=== PATIENT | female | born 1995 | race Caucasian/White ===

== ENCOUNTER 2018-06-18 20:58 | Emergency (ER) | payer OTHER ==
[2018-06-18] MEDS ORDERED: Metoclopramide HCl 10 MG/2 ML VIAL ONE (21:14)
[2018-06-18] MEDS ORDERED: methylPREDNISolone Sod Succ/PF 125 MG/2 ML VIAL ONE (21:14)
[2018-06-18] MEDS ORDERED: Ketorolac Tromethamine 30 MG/ML VIAL ONE (21:14)
[2018-06-18] MEDS ORDERED: diphenhydrAMINE 50 MG/ML VIAL ONE (21:14)
== END 2018-06-18 22:32 | disposition home or self-care (01) ==
LOC: SCSER 20:58
DX: G43.909 Migraine, unspecified, not intractable, without status migrainosus (principal); Z79.899 Other long term (current) drug therapy
CPT/HCPCS: 96361; 96374; 96375; J1200; J1885; J2765; J2930

== ENCOUNTER 2020-10-04 14:33 | Outpatient (CLI) | payer BC ==
--- NOTE | 2020-10-04 15:31 | ULT ---
THYROID ULTRASOUND: HISTORY: Goiter. COMPARISON: None. FINDINGS: There are isthmus measures 0.10 cm. Right upper lobe measures 5.1 x 1.3 x 1.7 cm. Left thyroid lobe measures 4.8 x 0.84 x 1.3 cm. Thyroid nodules: Right thyroid lobe: Two solid hypertrophy isoechoic nodules measuring 0.5 and 0.4 cm are noted in the upper pole. Left thyroid lobe: Solitary solid iso to hypoechoic nodule measuring 0.6 cm in the upper pole. IMPRESSION: Subcentimeter solid nodules in the left and right thyroid lobe. TIRADS score TR 3 mildly suspicious for the right and left thyroid lobe nodules. Based on the size of the lesion, TIRADS calculator does not suggest follow-up. However as a conservative measure follow-up imaging can be performed in 1 year. Transcribed Date/Time: 10/04/2020 3:34 PM
== END 2020-10-04 14:34 | disposition home or self-care (01) ==
LOC: BICULT 14:33
PROVIDERS: ATTEND Internal Medicine Endocrinology, Diabetes & Metabolism
DX: E04.9 Nontoxic goiter, unspecified (principal); E04.2 Nontoxic multinodular goiter
CPT/HCPCS: 76536